=== PATIENT | female | born 1945 | race African-American/Black ===

== ENCOUNTER → 2018-12-12 | Outpatient (CLI) | payer MEDICARE, BC ==
--- NOTE | 2018-12-12 10:18 | CARD ---
MR#: [id number] Date of Study: 12/12/2018 Ordering Physician: DEEPAK CM, Referring Physician: DEEPAK CM Tech: Ramona Ashley RDCS APPROVED REPORT EXAM: Two-dimensional and M-mode echocardiogram with Doppler and color Doppler. Other Information Quality : Good INDICATION Murmur 2D DIMENSIONS RVDd2.5 (2.9-3.5cm)Left Atrium(2D)3.5 (1.6-4.0cm) IVSd1.1 (0.7-1.1cm)Aortic Root(2D)3.1 (2.0-3.7cm) LVDd4.3 (3.9-5.9cm)LVOT Diameter2.2 (1.8-2.4cm) PWd1.0 (0.7-1.1cm)LVDs3.3 (2.5-4.0cm) FS (%) 23.7 %SV39.5 ml LVEF(%)55.0 (>50%) Aortic Valve AoV Peak Ender.142.9cm/sAoV VTI27.4cm AO Peak GR.8.2mmHgLVOT Peak Ender.141.7cm/s AO Mean GR.4mmHgAVA (VMAX)3.87cm2 MAYA (VTI)3.52hv2BO P 1/2 [id number] Mitral Valve MV E Rdkbgdhk99.2cm/sMV DECEL [id number] MV A Zsbkyhnw915.3cm/sE/A Ratio0.6 Tricuspid Valve TR P. Jhjofbrh014fo/sRAP EESZSSWQ9rmMn TR Peak Gr.18xbTeWKPU45mxNx Pulmonary Vein S1 Mbdceqgi87.8cm/sD2 Zcgosfxh60.8cm/s LEFT VENTRICLE The left ventricle is normal size. There is normal left ventricular wall thickness. The left ventricu lar systolic function is normal. The Ejection Fraction is 55-60%. There is normal LV segmental wall m otion. Transmitral Doppler flow pattern is Grade I-abnormal relaxation pattern. RIGHT VENTRICLE The right ventricle is normal size. The right ventricular systolic function is normal. ATRIA The left atrium size is normal. The right atrium size is normal. The interatrial septum is aneurysmal but no color flow is seen through the septum indicating any shunting. AORTIC VALVE The aortic valve is calcified but opens well. Doppler and Color Flow revealed mild aortic regurgitati on. There is no significant aortic valvular stenosis. MITRAL VALVE The mitral valve is normal in structure and function. There is no evidence of mitral valve prolapse. There is no mitral valve stenosis. Doppler and Color-flow revealed trace mitral regurgitation. TRICUSPID VALVE The tricuspid valve is normal in structure and function. Doppler and Color Flow revealed trace to mil d tricuspid regurgitation. There is mild pulmonary hypertension. The PA pressure was estimated at 32 mmHg. There is no tricuspid valve stenosis. PULMONIC VALVE The pulmonary valve is normal in structure and function. Doppler and Color Flow revealed mild pulmoni c valvular regurgitation. There is no pulmonic valvular stenosis. GREAT VESSELS The aortic root is normal in size. The ascending aorta is mildly dilated at 3.6 cm. The IVC is normal in size and collapses >50% with inspiration. PERICARDIAL EFFUSION There is no evidence of significant pericardial effusion. Critical Notification Critical Value: No <Conclusion> The left ventricular systolic function is normal. The Ejection Fraction is 55-60%. There is normal LV segmental wall motion. Transmitral Doppler flow pattern is Grade I-abnormal relaxation pattern. Mild aortic regurgitation. Trace mitral regurgitation. Trace to mild tricuspid regurgitation. The PA pressure was estimated at 32 mmHg. There is no evidence of significant pericardial effusion. Signed by : Kike Iniguez, Electronically Approved : 12/12/2018 10:17:58
== END | disposition home or self-care (01) ==
LOC: ECHO 08:25
PROVIDERS: ATTEND Nurse Practitioner Gerontology
DX: I08.8 Other rheumatic multiple valve diseases (principal); I27.20 Pulmonary hypertension, unspecified
CPT/HCPCS: 93306

== ENCOUNTER → 2019-06-15 | Outpatient (CLI) | payer MEDICARE, BC ==
--- NOTE | 2019-06-15 11:00 | KCIC ---
MRI Brain without contrast History: Confusion and memory loss for years Technique: Multiplanar, multisequential noncontrast MR imaging was performed of the brain. Comparison: None Findings: There is some motion. There is large approximate 2.1 cm transverse by 1.7 cm AP by about 1.4 cm cc round focus of abnormal signal involving the left cavernous sinus and projecting medially to the left sellar region, internally partially hypointense on the T2 sequence and also heterogeneous signal features on T1 sequence. There is no evidence of recent infarct or cytotoxic edema. The ventricles, sulci, and cisterns are within normal limits in size and configuration. There is no significant midline shift, intraaxial mass effect, or focal abnormal extra-axial fluid collection. There is scattered multifocal [id number] T2 and FLAIR hyperintense signal abnormality of the supratentorial parenchyma bilaterally, minimally of the jamari. There is old lacunar infarct centered in the left external capsule with mild associated hemosiderin deposition. Tiny focus of signal change of the lateral right thalamus is likely sequela of small old lacunar infarct. There are small old bilateral cerebellar lacunar infarcts. The mastoid air cells are aerated. The cerebellar tonsils are normal in location. There is no significant abnormality of the pineal gland. There is mild bilateral ethmoid air cell and right maxillary sinus mucosal thickening. There is preserved marrow signal of the clivus. Impression: 1. There is large round focus of abnormal signal of the left cavernous sinus protruding to the left sellar region, primary consideration a large aneurysm up to 2.1 cm. 2. Scattered multifocal T2 and FLAIR hyperintense signal abnormality of the supratentorial parenchyma bilaterally and minimally of the jamari is nonspecific, more commonly due to chronic microvascular ischemic disease in a patient this age. There are old lacunar infarcts as stated, largest of the left external capsule. Critcal results were discussed with therapy administrative assistant Lino in the office of Dr. Saldivar at 06/15/2019 10:56 AM, to inform doctor of findings. Electronically signed by: Jacinto Andrade MD (06/15/2019 10:57 AM) [id number]
== END | disposition home or self-care (01) ==
LOC: KCIC MRI 09:09
PROVIDERS: ATTEND Nurse Practitioner Gerontology
DX: I67.82 Cerebral ischemia (principal); J34.89 Other specified disorders of nose and nasal sinuses
CPT/HCPCS: 70551

== ENCOUNTER → 2020-10-06 | Outpatient (CLI) | payer MEDICARE, BC ==
--- NOTE | 2020-10-06 14:42 | KCIC ---
EXAM: Brain MRI without contrast. HISTORY: Dementia. Alzheimer's. Aneurysm. TECHNIQUE: Multiplanar, multisequence magnetic resonance imaging of the brain was performed without c ontrast. COMPARISON: MRI dated 06/15/2019. FINDINGS: There is no restricted diffusion to suggest acute or subacute infarction. There is a saccul ar aneurysm arising medially from the cavernous left internal carotid artery measuring approximately 2.0 cm. This is not appreciably changed compared to the prior study. There is also a tortuous or poss ibly ectatic cavernous right ICA. There are normal flow voids within the remainder the cerebral vesse ls. There is a chronic lacunar infarct within the left thalamus, new compared to the prior study. There i s also encephalomalacia and peripheral susceptibility effect within the left external capsule likely due to a chronic hemorrhage or hemorrhagic infarction. There are foci of encephalomalacia within the right greater than left cerebellar hemispheres due to chronic infarction. There are scattered areas of signal change throughout the cerebral white matter, likely due to chroni c small vessel disease in a patient of this age. There is cerebral volume loss. The orbits are unrema rkable. There is mild paranasal sinus mucosal thickening. The mastoid air cells are clear. There is n o suspicious calvarial lesion. There is a stable prominent sella. This does not appear to be empty. IMPRESSION: 1. No acute intracranial finding. 2. 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 There is also a tortuous and possibly ectatic or aneurysmal cavernous right ICA. These findings are stable compared to the prior study dated 06/05/2019. The left ICA aneurysm [facility] at the time of the comparison exam. 3. Bilateral cerebral white changes, likely due to chronic small vessel disease. 4. Cerebral atrophy. 5. New small chronic infarct within the left thalamus. There is also a chronic hemorrhage or hemorrha gic infarction within the left external capsule and small chronic infarcts within the cerebellar zev spheres. Electronically signed by: Tali Bay MD (10/06/2020 2:40 PM) [id number]
== END ==
LOC: KCIC MRI 13:34
PROVIDERS: ATTEND Nurse Practitioner Family
DX: G30.1 Alzheimer's disease with late onset (principal); I67.1 Cerebral aneurysm, nonruptured; G31.9 Degenerative disease of nervous system, unspecified; I63.89 Other cerebral infarction; F02.80 Dementia in other diseases classified elsewhere, unspecified severity, without behavioral disturbance, psychotic disturbance, mood disturbance, and anxiety
CPT/HCPCS: 70551

== ENCOUNTER → 2021-08-05 | Outpatient (CLI) | payer MEDICARE, BC ==
--- NOTE | 2021-08-05 12:37 | KCIC ---
Bilateral digital screening mammograms with 3-D tomosynthesis: Reason for examination: Routine screening. No previous exams available for comparison. New baseline. Bilateral mammograms in CC and oblique projections were obtained with 2-D imaging and 3-D tomosynthes is imaging on a Siemens Inspiration unit and reviewed on the workstation. Interpretation was made wit h the benefit of CAD. The skin and nipples show no abnormalities. No abnormal axillary lymph nodes are seen. The breast par enchyma shows scattered fatty and fibroglandular density. (Breast density: Category B.) There are sma ll circumscribed nodules located 2:30 B and 3:00 C positions of the left breast consistent with intra mammary lymph nodes. In the right breast at the 8:00 B position approximately 8 cm from the nipple, t here is a 1.4 cm nodule present. Recommend further evaluation with ultrasound. There are no other dom inant masses, suspicious calcifications or architectural distortion. Impression: 1.4 cm nodule at the 8:00 position of the right breast 8 cm from the nipple. Recommend further evalua tion with ultrasound. BI-RAD Category 0: Incomplete. Needs additional imaging evaluation. "Our facility is accredited by the [employer] Mammography Program." This patient's information has been entered into a reminder system for the patient to be notified wit h the results of her examination and a target date for the next mammogram. Electronically signed by: Mattie Milton MD (08/05/2021 12:34 PM) [id number]
== END ==
LOC: KCIC MAMMO 09:58
PROVIDERS: ATTEND Family Medicine
DX: Z12.31 Encounter for screening mammogram for malignant neoplasm of breast (principal)
CPT/HCPCS: 77063; 77067

== ENCOUNTER → 2021-08-25 | Outpatient (CLI) | payer MEDICARE, BC ==
--- NOTE | 2021-08-25 10:54 | KCIC ---
EXAM: Right breast sonogram. HISTORY: 76-year-old female presents for evaluation of nodularity within the right breast demonstrate d on a mammogram dated 08/05/2021. TECHNIQUE: Sonographic imaging of the right breast targeted to the site of mammographic concern was p erformed. COMPARISON: 08/05/2021. FINDINGS: There is no suspicious sonographic correlate for nodularity within the 8:00 position of the right breast at mid depth demonstrated on the recent mammogram. No mass, posterior shadowing or abno rmal blood flow is seen. There are benign axillary lymph nodes. IMPRESSION: 1. No suspicious sonographic correlate for nodularity within the 8:00 position of the right breast de monstrated on the recent screening mammogram. The absence of a suspicious sonographic correlate favor s an occult island of benign breast parenchyma or benign hamartoma. 2. BI-RADS Category 3: Probably benign finding(s). Short term follow up with a right breast diagnosti c mammogram and sonogram in 6 months is recommended stability and benignity. Electronically signed by: Tali Bay MD (08/25/2021 10:51 AM) [email or web address]
== END ==
LOC: KCIC US 09:42
PROVIDERS: ATTEND Family Medicine
DX: R92.2 Inconclusive mammogram (principal)
CPT/HCPCS: 76641